=== PATIENT | male | born 1945 | race Caucasian/White ===

== ENCOUNTER 2019-12-14 04:08 | Inpatient (IN) ==
--- NOTE | 2019-12-14 04:28 | Emergency Department Note ---
History of Present Illness General Chief complaint: Abdominal Pain Stated complaint: ABDOMINAL PAIN Time Seen by Provider: 12/14/19 04:11 Source: patient Mode of arrival: EMS Limitations: no limitations History of Present Illness Provider complaint: abdominal pain Onset (ago): hour(s) 8 Location: abdomen Radiation: non-radiation Severity: moderate Pain Consistency: + constant Current Pain Intensity: 5 Quality: + constant Exacerbated By: + none Associated symptoms: + nausea/vomiting Treatments prior to arrival: other This is a 74-year-old male who presents this evening with abdominal pain. Patient states between 9 and 10 when he was getting ready for bed he began noticing intermittent central abdominal pain. Patient thought it perhaps was related to something he had eaten this evening. Patient states his diet has been different recently as he and his are in the process of moving and so they have not had their normal space and time to cook. Patient states he has a history of Crohn's disease, but has not had any flareups or problems since he underwent a bowel resection 10 years ago. Patient states he tried to lay down to go to sleep, however was still getting intermittent episodes of pain. And he states that approximately 1 AM, the pain began to be more constant and was slowly becoming more severe. Patient began to get more nauseated however no vomiting. Patient denies fevers or chills. Patient did try a dose of Pepto- Bismol without any significant improvement. Patient states only other recent medication change was the addition of amlodipine for blood pressure control. Patient states he chronically has loose stools, however he had noticed in the last several days his stools seemed even looser than usual. No black or bloody stools. No change in urine. No recent travel or other sick contacts. Patient states he does not follow with GI since he has not had any issues with his Crohn's disease and did not feel he needed to be on any additional preventative medication. Home Medications Home Medications Medication Instructions Recorded Confirmed Type budesonide-formoterol [Symbicort] 1 inh INHALATION BID 05/11/19 12/14/19 History cholecalciferol (vitamin D3) 1,000 unit PO DAILY 05/11/19 12/14/19 History [Vitamin D3] finasteride [Proscar] 5 mg PO DAILY 05/11/19 12/14/19 History levothyroxine 100 mcg PO DAILY 05/11/19 12/14/19 History losartan [Cozaar] 50 mg PO DAILY 05/11/19 12/14/19 History aspirin [Ecotrin Low Strength] 81 mg PO QAM #34 tab 05/12/19 12/14/19 Rx clopidogrel 75 mg PO QAM #34 tab 05/12/19 12/14/19 Rx amlodipine 2.5 mg PO DAILY 12/14/19 12/14/19 History atorvastatin 80 mg PO HS 12/14/19 12/14/19 History cyanocobalamin (vitamin B-12) 1,000 mcg PO DAILY 12/14/19 12/14/19 History [Vitamin B-12] nitroglycerin [Nitrostat] 0.4 mg SUBLINGUAL UD PRN 12/14/19 12/14/19 History Allergies Allergy/AdvReac Type Severity Reaction Status Date / Time No Known Allergies Allergy Unknown Verified 12/14/19 05:30 Past Med/Surg History Medical History Asthma CAD (coronary atherosclerotic disease) Crohn's disease Dyslipidemia Hypertension Hypothyroidism Prostate cancer Surgical History History of bowel resection History of cardiac cath 2019 - LEE to LAD & PDA History of cholecystectomy Family History Other Asthma Cancer Heart disease Social History Preferred Language: Vietnamese Communication Ability: Effective Beliefs That Will Affect Care: None Current Living Situation: Spouse Other Information That Helps Us Care for You: No Feels Safe at Home: Yes Smoking Status: Former smoker Hx Alcohol Use: Yes Alcohol type: hard liquor Alcohol Intake Frequency: Rarely Hx Substance Use: No Review of Systems See HPI for pertinent positives & negatives. and A total of 10 systems reviewed and were otherwise negative Physical Exam Vital Signs Vital Signs - 24 hr 12/14/19 04:03 12/14/19 04:13 12/14/19 04:15 Temperature 37.2 C Temperature Source Oral Pulse Rate 63 62 60 Pulse Rate [Left Finger] Pulse Rate from SpO2 Sensor 62 64 Respiratory Rate 18 14 17 Respiratory Effort / Characteristics Normal for Patient Blood Pressure 180/98 H 180/98 H Blood Pressure [Right Arm] Blood Pressure Mean 125 127 Blood Pressure Mean [Right Arm] Blood Pressure Position Sitting Pulse Oximetry 95 95 97 Oxygen Delivery Method Room Air Oxygen Flow Rate Sepsis Recent Fever Within 48 Hours No Sepsis Action Taken by Nursing No Action Required 12/14/19 04:30 12/14/19 04:31 12/14/19 05:00 Temperature Temperature Source Pulse Rate 59 L 62 55 L Pulse Rate [Left Finger] Pulse Rate from SpO2 Sensor 60 59 L 62 Respiratory Rate 20 16 23 Respiratory Effort / Characteristics Blood Pressure 159/90 H Blood Pressure [Right Arm] Blood Pressure Mean 117 Blood Pressure Mean [Right Arm] Blood Pressure Position Pulse Oximetry 96 97 95 Oxygen Delivery Method Oxygen Flow Rate Sepsis Recent Fever Within 48 Hours Sepsis Action Taken by Nursing 12/14/19 05:01 12/14/19 05:30 12/14/19 05:31 Temperature Temperature Source Pulse Rate 55 L 62 58 L Pulse Rate [Left Finger] Pulse Rate from SpO2 Sensor 57 L 63 59 L Respiratory Rate 26 H 27 H 19 Respiratory Effort / Characteristics Blood Pressure 159/89 H 147/99 H Blood Pressure [Right Arm] Blood Pressure Mean 128 113 Blood Pressure Mean [Right Arm] Blood Pressure Position Pulse Oximetry 97 97 96 Oxygen Delivery Method Oxygen Flow Rate Sepsis Recent Fever Within 48 Hours Sepsis Action Taken by Nursing 12/14/19 06:00 12/14/19 06:01 12/14/19 07:21 Temperature Temperature Source Pulse Rate 60 69 Pulse Rate [Left Finger] 72 Pulse Rate from SpO2 Sensor 60 68 Respiratory Rate 23 27 H 24 Respiratory Effort / Characteristics Blood Pressure 139/83 Blood Pressure [Right Arm] 166/92 H Blood Pressure Mean 104 Blood Pressure Mean [Right Arm] 116 Blood Pressure Position Pulse Oximetry 96 97 98 Oxygen Delivery Method Nasal Cannula Oxygen Flow Rate 2 Sepsis Recent Fever Within 48 Hours Sepsis Action Taken by Nursing 12/14/19 08:49 Temperature Temperature Source Pulse Rate Pulse Rate [Left Finger] 63 Pulse Rate from SpO2 Sensor Respiratory Rate 22 Respiratory Effort / Characteristics Blood Pressure Blood Pressure [Right Arm] 124/77 Blood Pressure Mean Blood Pressure Mean [Right Arm] 92 Blood Pressure Position Pulse Oximetry 98 Oxygen Delivery Method Nasal Cannula Oxygen Flow Rate 2 Sepsis Recent Fever Within 48 Hours Sepsis Action Taken by Nursing GENERAL: alert, uncomfortable appearing, well nourished, no distress, non-toxic EYE EXAM: normal conjunctiva, PERRL and EOM's grossly intact OROPHARYNX: no exudate, no erythema, lips, buccal mucosa, and tongue normal and mucous membranes are moist NECK: supple, no nuchal rigidity, no adenopathy, non-tender LUNGS: Clear to auscultation. Normal chest wall mechanics, no w/r/r HEART: no murmurs, S1 normal and S2 normal ABDOMEN: abdomen soft, central abdominal tenderness, mild distention noted, normo-active bowel sounds, no masses, no rebound or guarding. Dull to p ercussion. BACK: Back is symmetrical on inspection and there is no deformity, no midline tenderness, no CVA tenderness. SKIN: no rashes and no bruising UPPER EXTREMITIES: upper extremities are grossly normal. FROM, nml pulses b/l. LOWER EXTREMITIES: No pitting edema. FROM, nml pulses b/l. NEURO EXAM: Normal sensorium, cranial nerves II-XII grossly intact, normal speech, no gross weakness of arms, no gross weakness of legs. Gross sensation intact. Course Course 0607: Pt with nausea. Pain improved. 0630: Pt signed out to Dr Broderick awaiting CT results and repeat evaluation. Administered Medications Aspirin (Ecotrin Ectab) 81 mg PO QAM [facility] Stop: 01/13/20 11:45 Last Admin: 12/14/19 13:23 Dose: 81 mg Documented by: [id number] Potassium Chloride/Dextrose/Sod Cl (D5w And 1/2nss + 20meq Kcl) 20 meq in 1,000 mls @ 80 mls/hr IV .[id number] AN[facility]IONETTE Stop: 12/15/19 13:29 Last Admin: 12/14/19 13:23 Dose: 80 mls/hr Documented by: [id number] Ciprofloxacin (Cipro) 400 mg in 200 mls @ 100 mls/hr IV Q12 ANTIONETTE; Protocol Stop: 12/24/19 12:59 Last Infusion: 12/15/19 00:36 Dose: 0 mls/hr Documented by: [id number] Admin: 12/14/19 22:36 Dose: 100 mls/hr Documented by: [id number] Infusion: 12/14/19 16:35 Dose: 0 mls/hr Documented by: [id number] Admin: 12/14/19 14:32 Dose: 100 mls/hr Documented by: [id number] Metronidazole (Flagyl) 500 mg in 100 mls @ 100 mls/hr IV Q8 AN[facility]IONETTE Stop: 12/24/19 12:59 Last Infusion: 12/14/19 22:24 Dose: 0 mls/hr Documented by: [id number] Admin: 12/14/19 21:24 Dose: 100 mls/hr Documented by: [id number] Infusion: 12/14/19 15:43 Dose: 0 mls/hr Documented by: [id number] Admin: 12/14/19 14:32 Dose: 100 mls/hr Documented by: [id number] Losartan Potassium (Cozaar) 50 mg PO DAILY [facility] Stop: 01/13/20 11:45 Last Admin: 12/14/19 13:23 Dose: 50 mg Documented by: [id number] Ondansetron HCl (Zofran) 4 mg IV Q6H PRN PRN Reason: Nausea Stop: 01/13/20 11:45 Last Admin: 12/14/19 13:30 Dose: 4 mg Documented by: [id number] Discontinued Medications Fentanyl Citrate (Fentanyl Citrate) 50 mcg IV Q15M PRN PRN Reason: Pain Stop: 12/28/19 04:41 Last Admin: 12/14/19 05:22 Dose: 50 mcg Documented by: [id number] Admin: 12/14/19 05:01 Dose: 50 mcg Documented by: [id number] Sodium Chloride (Nss 1000ml) 1,000 mls @ 250 mls/hr IV .Q4H AN[facility]IONETTE Stop: 01/13/20 04:44 Last Admin: 12/14/19 11:48 Dose: Not Given Documented by: [id number] Infusion: 12/14/19 09:11 Dose: 0 mls/hr Documented by: [id number] Admin: 12/14/19 05:05 Dose: 250 mls/hr Documented by: [id number] Acetaminophen (Ofirmev) 1,000 mg in 100 mls @ 400 mls/hr IV NOW STA Stop: 12/14/19 05:58 Last Infusion: 12/14/19 07:40 Dose: 0 mls/hr Documented by: [id number] Admin: 12/14/19 07:20 Dose: 400 mls/hr Documented by: [id number] Methylprednisolone 40 mg/ (Syringe) 0.64 mls @ 1.5 mls/min IV ONE ONE Stop: 12/14/19 13:01 Last Admin: 12/14/19 13:23 Dose: 1.5 mls/min Documented by: [id number] Ioversol (Optiray 320 100ml) 94 ml IV ONCE PRN PRN Reason: Interaction Checking Stop: 12/18/19 07:05 Last Admin: 12/14/19 07:06 Dose: 94 ml Documented by: [id number] Ondansetron HCl (Zofran) 4 mg IV NOW STA Stop: 12/14/19 04:42 Last Admin: 12/14/19 04:55 Dose: 4 mg Documented by: [id number] Ondansetron HCl (Zofran) 4 mg IV NOW STA Stop: 12/14/19 05:44 Last Admin: 12/14/19 05:47 Dose: 4 mg Documented by: [id number] Medical Decision Making Medical Records Attestation: I reviewed the patient's medical records. Home Medications Current Medication List: was personally reviewed by me Laboratory Data Attestation: I reviewed the patient's lab results. Result diagrams: 12/14/19 04:23 12/14/19 04:23 Lab Results 12/14/19 12/14/19 12/14/19 Range/Units 04:23 04:23 04:23 WBC 8.00 (4.8-10.8) K/uL RBC 4.16 L (4.7-6.1) M/uL Hgb 13.3 L (14.0-18.0) g/dL Hct 39.1 L (42-52) % MCV 94.0 (80-100) fL MCH 32.0 (25-34) pg MCHC 34.0 (32-36) g/dL RDW Std Deviation 46.5 H (36.4-46.3) fL RDW Coeff of Yong 13.5 (11.5-14.5) % Plt Count 221 (130-400) K/uL MPV 9.5 (7.4-10.4) fL Immature Gran % (Auto) 0.3 % Neut % (Auto) 79.5 % Lymph % (Auto) 10.5 % [place] % (Auto) 7.0 % Eos % (Auto) 2.6 % Baso % (Auto) 0.1 % Immature Gran # (Auto) 0.02 (0.00-0.02) K/uL Neut # (Auto) 6.36 (1.4-6.5) K/uL Lymph # (Auto) 0.84 L (1.2-3.4) K/uL [place] # (Auto) 0.56 (0.11-0.59) K/uL Eos # (Auto) 0.21 (0-0.5) K/uL Baso # (Auto) 0.01 (0-0.2) K/uL PT 10.9 (9.0-12.0) Seconds INR 1.0 (0.9-1.1) Sodium 138 (136-145) mmol/L Potassium 3.6 (3.5-5.1) mmol/L Chloride 112 H (98-107) mmol/L Carbon Dioxide 22 (21-32) mmol/L Anion Gap 4.0 (3-11) BUN 16 (7-18) mg/dl Creatinine 1.11 (0.6-1.4) mg/dl Est Cr Clr Drug Dosing 54.6 ml/min Est GFR ( Amer) 75.4 Est GFR (Non-Af Amer) 65.1 BUN/Creatinine Ratio 14.0 (10-20) Glucose 97 (70-99) mg/dl Calcium 8.9 (8.5-10.1) mg/dl Magnesium 1.8 (1.8-2.4) mg/dl Total Bilirubin 0.7 (0.2-1) mg/dl AST 71 H (15-37) U/L ALT 74 (12-78) U/L Alkaline Phosphatase 101 (45-117) U/L Troponin I < 0.015 (0-0.045) ng/ml Total Protein 7.0 (6.4-8.2) gm/dl Albumin 3.2 L (3.4-5.0) gm/dl Globulin 3.8 (2.5-4.0) gm/dl Albumin/Globulin Ratio 0.8 L (0.9-2) Lipase 75 (73-393) U/L Urine Color Urine Appearance (Clear) Urine pH (4.5-7.5) Ur Specific [place] (1.000-1.030) Urine Protein (Negative) Urine Glucose (UA) (Negative) Urine Ketones (Negative) Urine Blood (Negative) Urine Nitrite (Negative) Urine Bilirubin (Negative) Urine Urobilinogen (Negative) Ur Leukocyte Esterase (Negative) 12/14/19 Range/Units 08:00 WBC (4.8-10.8) K/uL RBC (4.7-6.1) M/uL Hgb (14.0-18.0) g/dL Hct (42-52) % MCV (80-100) fL MCH (25-34) pg MCHC (32-36) g/dL RDW Std Deviation (36.4-46.3) fL RDW Coeff of Yong (11.5-14.5) % Plt Count (130-400) K/uL MPV (7.4-10.4) fL Immature Gran % (Auto) % Neut % (Auto) % Lymph % (Auto) % [place] % (Auto) % Eos % (Auto) % Baso % (Auto) % Immature Gran # (Auto) (0.00-0.02) K/uL Neut # (Auto) (1.4-6.5) K/uL Lymph # (Auto) (1.2-3.4) K/uL [place] # (Auto) (0.11-0.59) K/uL Eos # (Auto) (0-0.5) K/uL Baso # (Auto) (0-0.2) K/uL PT (9.0-12.0) Seconds INR (0.9-1.1) Sodium (136-145) mmol/L Potassium (3.5-5.1) mmol/L Chloride (98-107) mmol/L Carbon Dioxide (21-32) mmol/L Anion Gap (3-11) BUN (7-18) mg/dl Creatinine (0.6-1.4) mg/dl Est Cr Clr Drug Dosing ml/min Est GFR ( Amer) Est GFR (Non-Af Amer) BUN/Creatinine Ratio (10-20) Glucose (70-99) mg/dl Calcium (8.5-10.1) mg/dl Magnesium (1.8-2.4) mg/dl Total Bilirubin (0.2-1) mg/dl AST (15-37) U/L ALT (12-78) U/L Alkaline Phosphatase (45-117) U/L Troponin I (0-0.045) ng/ml Total Protein (6.4-8.2) gm/dl Albumin (3.4-5.0) gm/dl Globulin (2.5-4.0) gm/dl Albumin/Globulin Ratio (0.9-2) Lipase (73-393) U/L Urine Color Yellow Urine Appearance Clear (Clear) Urine pH 5.0 (4.5-7.5) Ur Specific [place] 1.025 (1.000-1.030) Urine Protein Negative (Negative) Urine Glucose (UA) Negative (Negative) Urine Ketones Trace H (Negative) Urine Blood Negative (Negative) Urine Nitrite Negative (Negative) Urine Bilirubin Negative (Negative) Urine Urobilinogen Negative (Negative) Ur Leukocyte Esterase Negative (Negative) Blood Pressure Blood Pressure Findings: Elevated blood pressure Blood Pressure Disposition: further management by hospitalist RACHEL Samuel Patient presenting with increased abdominal pain in the setting of a history of Crohn's disease. Patient ill-appearing however labs reassuring. Vital signs stable and patient afebrile. Patient signed out to Dr. Broderick awaiting CT scan results to make disposition and reevaluate the patient. Patient aware of lab results during my recheck and at time of signout. Patient did not have a surgical abdomen or peritoneal signs, however is at risk for other GI pathology. No evidence of bacteremia/sepsis. I do not suspect perforation, GI bleed, or mesenteric ischemia at this time. Impression & Plan Abdominal pain, Nausea, SBO (small bowel obstruction), Crohn's disease Discharge Plan Visit Data *Final* Discharge Date/Time: 12/14/19 10:30 Chief Complaint: Abdominal Pain Stated Complaint: ABDOMINAL PAIN ED Provider: Hanna Broderick Discharge Problem: Abdominal pain, Nausea, SBO (small bowel obstruction), Crohn's disease Patient Disposition: Admitted As Inpatient Discharge Instructions Interventions: ED Discharge Assessment Last Done: 12/14/19 10:30 Discharge Problem: Abdominal pain Qualifiers: Abdominal location: generalized Qualified Code(s): R10.84 - Generalized abdominal pain Crohn's disease Qualifiers: Gastrointestinal tract location: small and large intestine Digestive disease complication type: with intestinal obstruction Qualified Code(s): K50.812 - Crohn's disease of both small and large intestine with intestinal obstruction
[2019-12-14] MEDS ORDERED: ONDANSETRON INJ 2 MG/ML 2 ML VIAL IV STA ×2 (04:41→05:43)
[2019-12-14 04:57] LABS: Basophils # (auto) 0.01 K/uL (0-0.2); Basophils % (auto) 0.1 %; Eosinophils # (auto) 0.21 K/uL (0-0.5); Eosinophils % (auto) 2.6 %; Hematocrit (blood only) 39.1 % (42-52); Hemoglobin 13.3 g/dL (14.0-18.0); Immature Granulocytes # (auto) 0.02 K/uL (0.00-0.02); Immature Granulocytes % (auto) 0.3 %; Lymphocytes # (auto) 0.84 K/uL (1.2-3.4); Lymphocytes % (auto) 10.5 %; Mean Platelet Volume 9.5 fL (7.4-10.4); Monocytes # (auto) 0.56 K/uL (0.11-0.59); Neutrophils # (auto) 6.36 K/uL (1.4-6.5); Neutrophils % (auto) 79.5 %; Platelet Count 221 K/uL (130-400); RDW Coefficient of Variation 13.5 % (11.5-14.5); RDW Standard Deviation 46.5 fL (36.4-46.3); Red Blood Count 4.16 M/uL (4.7-6.1)
[2019-12-14] MEDS: fentaNYL citrate 100 MCG/2 ML VIAL IV PRN ×2 (05:01→05:22)
[2019-12-14 05:02] LABS: Prothrombin Time 10.9 Seconds (9.0-12.0)
[2019-12-14] MEDS: SODIUM CHLORIDE 0.9% 1000ML 1,000 ML IV SCH ×2 (05:05→11:48)
[2019-12-14 05:17] LABS: Alanine Aminotransferase 74 U/L (12-78); Albumin Level 3.2 gm/dl (3.4-5.0); Aspartate Aminotransferase 71 U/L (15-37); Blood Urea Nitrogen 16 mg/dl (7-18); Calcium 8.9 mg/dl (8.5-10.1); Carbon Dioxide 22 mmol/L (21-32); Chloride 112 mmol/L (98-107); Creatinine Clr Calc Pharmacy 54.6 ml/min; Est GFR (African American) 75.4; Est GFR (Non-African American) 65.1; Glucose 97 mg/dl (70-99); Lipase 75 U/L (73-393); Magnesium 1.8 mg/dl (1.8-2.4); Potassium 3.6 mmol/L (3.5-5.1); Sodium 138 mmol/L (136-145)
[2019-12-14 05:22] LABS: Albumin Globulin Ratio 0.8 (0.9-2); Alkaline Phosphatase 101 U/L (45-117); Bilirubin,Total 0.7 mg/dl (0.2-1); Globulin 3.8 gm/dl (2.5-4.0); Troponin I < 0.015 ng/ml (0-0.045)
[2019-12-14] MEDS ORDERED: ACETAMINOPHEN 1,000 MG/100 ML VIAL IV STA (05:44)
[2019-12-14] MEDS ORDERED: IOVERSOL 100ml IV PRN (07:06)
--- NOTE | 2019-12-14 07:32 | CT Scan Report ---
CT abd pelvis oral and IV con CLINICAL HISTORY: abd pain, hx Crohn's and resection COMPARISON STUDY: 01/23/2009 TECHNIQUE: The patient was scanned in a dynamic helical fashion during intravenous administration of 94 cc of Optiray 320. The patient drank a small volume of oral contrast. A dose lowering technique w as utilized adhering to the principles of ALARA. CT DOSE: 416.94 mGy.cm FINDINGS: Lower chest: There are dependent atelectatic changes. There is a small hiatal hernia Liver: The contrast-enhanced liver is normal in size, contour, and attenuation. There is no intrahepa tic biliary ductal dilatation. The hepatic veins and portal veins are patent. Gallbladder: Surgically absent Spleen: Normal in size and attenuation. Pancreas: Unremarkable. Adrenal glands: Unremarkable. Kidneys: No solid renal masses are visualized. There are bilateral renal cysts measuring up to 2 cm i n diameter. Bowel: The patient is status post a cecal and terminal ileal resection with a ileal colonic anastomos is. There are dilated small bowel loops with a small bowel feces sign. There is a distal ileal transi tion zone. The distal ileum is thick-walled consistent with Crohn's disease. There is minimal ascites . There is no portal venous gas. There is no pneumatosis. There is borderline bowel wall thickening o f a second small bowel loop possibly representing a skip lesion. There is colonic diverticulosis. The re is no evidence of acute diverticulitis. At the transition zone, the bowel loops are matted togethe r including a loop of sigmoid colon. A fistula cannot be excluded. Peritoneum: No free air is visualized. There is minimal ascites. There are small fat-containing left inguinal hernia. Vasculature: The abdominal aorta is normal in course and caliber. Adenopathy: None. Pelvic viscera: There is mild prostatomegaly Skeletal structures: There is a stable sacral bone island, and stable rim sclerotic lesion within the right iliac bone. IMPRESSION: 1. Postsurgical changes of a cecal and terminal ileal resection with a ileal colonic anastomosis 2. Small bowel obstruction with a right lower quadrant transition zone and a thick-walled distal ilea l bowel loop consistent with the clinical history of Crohn's disease. There is no pneumatosis. There is no portal venous gas. There is associated low volume ascites. 3. At the transition zone, there are matted bowel loops which include the sigmoid colon. A fistula at this level must be considered. ACT 112: Negative or not required by law. Electronically signed by: Frankie Malone M.D. 12/14/2019 7:31 AM
[2019-12-14 08:19] LABS: Appearance Urine Clear (Clear); Bilirubin Urine Negative (Negative); Blood Urine Negative (Negative); Color Urine Yellow; Glucose Urine UA Negative (Negative); Ketones Urine Trace (Negative); Leukocyte Esterase Urine Negative (Negative); Nitrite Urine Negative (Negative); Protein Urine Negative (Negative); Specific Gravity Urine 1.025 (1.000-1.030); Urobilinogen Urine Negative (Negative)
--- NOTE | 2019-12-14 09:41 | Electrocardiogram Report ---
Test Reason : Blood Pressure : / mmHG Vent. Rate : 067 BPM Atrial Rate : 067 BPM P-R Int : 218 ms QRS Dur : 146 ms QT Int : 460 ms P-R-T Axes : 059 -34 022 degrees QTc Int : 486 ms Sinus rhythm with 1st degree A-V block with Premature atrial complexes Left axis deviation Right bundle branch block Abnormal ECG When compared with ECG of 12-MAY-2019 06:49, Premature atrial complexes are now Present Confirmed by Eduard Rubio ([id number]) on 12/14/2019 9:41:46 AM Referred By: REFERRED SELF Confirmed By:Eduard Rubio
--- NOTE | 2019-12-14 10:26 | Surgery Consultation ---
Date of Consultation December 14, 2019 Assessment & Plan (1) SBO (small bowel obstruction): pt is a 74 year-old male who presents to Er with acute abdominal pain, IMP: SBO, colon fistula? Plan, I agree with that hospitalist will admit pt to hospital, no emergent surgery indication now, conservative treatment, NPO, except po eds, hold plavix, continue po ASA, IV fluid, labs, KUB in am, D/W pt may need surgery in pt's symptoms are getting worse, pt understood, I answered all questions, (2) Colonic fistula: History of Present Illness History of Present Illness CC: abdominal pain, HPI: pt is a 74 year-old male who presents to Er with 8 hours history acute abdominal pain with nausea, no vomiting, the pain is located at lower abdomen, the pain is 8/10. pt had BM before came to ER, now, pt feels better, no abdomi nal pain, no fever, pt denies chest pain, no diarrhea, pt had bowel resection for crohn's disease 10 years ago, pt has no abdominal pain since then. pt had CT scan at Er -IMPRESSION: 1. Postsurgical changes of a cecal and terminal ileal resection with a ileal colonic anastomosis 2. Small bowel obstruction with a right lower quadrant transition zone and a thick-walled distal ileal bowel loop consistent with the clinical history of Crohn's disease. There is no pneumatosis. There is no portal venous gas. There is associated low volume ascites. 3. At the transition zone, there are matted bowel loops which include the sigmoid colon. A fistula at this level must be considered. Allergies Allergy/AdvReac Type Severity Reaction Status Date / Time No Known Allergies Allergy Unknown Verified 12/14/19 05:30 Home Medications Home Medications Medication Instructions Recorded Confirmed Type budesonide-formoterol [Symbicort] 1 inh INHALATION BID 05/11/19 12/14/19 History cholecalciferol (vitamin D3) 1,000 unit PO DAILY 05/11/19 12/14/19 History [Vitamin D3] finasteride [Proscar] 5 mg PO DAILY 05/11/19 12/14/19 History levothyroxine 100 mcg PO DAILY 05/11/19 12/14/19 History losartan [Cozaar] 50 mg PO DAILY 05/11/19 12/14/19 History aspirin [Ecotrin Low Strength] 81 mg PO QAM #34 tab 08/28/19 03/31/20 Rx clopidogrel 75 mg PO QAM #34 tab 05/12/19 12/14/19 Rx amlodipine 2.5 mg PO DAILY 12/14/19 12/14/19 History atorvastatin 80 mg PO HS 12/14/19 12/14/19 History cyanocobalamin (vitamin B-12) 1,000 mcg PO DAILY 12/14/19 12/14/19 History [Vitamin B-12] nitroglycerin [Nitrostat] 0.4 mg SUBLINGUAL UD PRN 12/14/19 12/14/19 History Patient History Medical History (Updated 12/14/19 @ 10:34 by Jacoby Lizarraga MD) CAD (coronary atherosclerotic disease) Crohn's disease Dyslipidemia Hypertension Hypothyroidism Prostate cancer Surgical History (Updated 12/14/19 @ 08:34 by Lida Badillo PA-C) History of bowel resection History of cardiac cath 2019 - LEE to LAD & PDA Social History Preferred Language: Faroese Beliefs That Will Affect Care: None Current Living Situation: Spouse Feels Safe at Home: Yes Smoking Status: Former smoker Hx Alcohol Use: Yes Alcohol type: hard liquor Hx Substance Use: No Review of Systems Review of Systems: All systems reviewed & are unremarkable except as noted in HPI & below Constitutional: as per Subjective / HPI Eyes: as per Subjective / HPI Ear, Nose, Mouth, Throat: as per Subjective / HPI Respiratory: as per Subjective / HPI Cardiovascular: Additional Comments: CAD, 2 cardiac stents, HTN Gastrointestinal: as per Subjective / HPI crohn's disease, bowel resection Genitourinary: + as per Subjective / HPI and + problem reported (prostate cancer) Musculoskeletal: as per Subjective / HPI Integumentary: as per Subjective / HPI Neurologic: as per Subjective / HPI TIA Psychiatric: as per Subjective / HPI Endocrine: hypothyroidism Hematologic / Lymphatic: as per Subjective / HPI Allergy / Immunological: as per Subjective / HPI Physical Exam Constitutional: WD/WN, vitals as above well developed and well nourished Eyes: PERRL, conjunctivae normal, anicteric sclerae ENMT: external ear and nose normal, oropharynx normal Neck: trachea midline, no thyromegaly Respiratory: normal respiratory effort, lungs clear to auscultation normal respiratory effort Cardiovascular: RRR, no murmur, no edema Rate/Rhythm: regular rate and regular rhythm Heart Sounds: normal S1 and normal S2 Gastrointestinal (Abdomen): normal bowel sounds, soft, nontender, no hepatosplenomegaly Percussion/Palpation: abdomen soft middle line scar, no distend, no tenderness, BS + Musculoskeletal: no cyanosis or clubbing, extremities motor strength 5/5 Skin: no rashes, warm and dry Neurologic: patellar DTR's 2+ bilat, sensation intact Psychiatric: Orientation: alert and oriented x 3 Results & Data Vital Signs (Past 12 Hours) Vital Signs Temp Pulse Pulse Resp BP BP Pulse Ox 12/14/19 10:12 60 18 138/79 97 12/14/19 08:49 63 22 124/77 98 12/14/19 07:21 72 24 166/92 H 98 12/14/19 06:01 69 27 H 97 12/14/19 06:00 60 23 139/83 96 12/14/19 05:31 58 L 19 96 12/14/19 05:30 62 27 H 147/99 H 97 12/14/19 05:01 55 L 26 H 159/89 H 97 12/14/19 05:00 55 L 23 95 12/14/19 04:31 62 16 97 12/14/19 04:30 59 L 20 159/90 H 96 12/14/19 04:15 60 17 97 12/14/19 04:13 62 14 180/98 H 95 12/14/19 04:03 37.2 C 63 18 180/98 H 95 Laboratory Results Abnormal lab results 12/14/19 12/14/19 12/14/19 Range/Units 04:23 04:23 08:00 RBC 4.16 L (4.7-6.1) M/uL Hgb 13.3 L (14.0-18.0) g/dL Hct 39.1 L (42-52) % RDW Std Deviation 46.5 H (36.4-46.3) fL Lymph # (Auto) 0.84 L (1.2-3.4) K/uL Chloride 112 H (98-107) mmol/L AST 71 H (15-37) U/L Albumin 3.2 L (3.4-5.0) gm/dl Albumin/Globulin Ratio 0.8 L (0.9-2) Urine Ketones Trace H (Negative) Diagnostic Findings CT abd pelvis oral and IV con CLINICAL HISTORY: abd pain, hx Crohn's and resection COMPARISON STUDY: 01/23/2009 TECHNIQUE: The patient was scanned in a dynamic helical fashion during intravenous administration of 94 cc of Optiray 320. The patient drank a small volume of oral contrast. A dose lowering technique was utilized adhering to the principles of ALARA. CT DOSE: 416.94 mGy.cm FINDINGS: Lower chest: There are dependent atelectatic changes. There is a small hiatal hernia Liver: The contrast-enhanced liver is normal in size, contour, and attenuation. There is no intrahepatic biliary ductal dilatation. The hepatic veins and portal veins are patent. Gallbladder: Surgically absent Spleen: Normal in size and attenuation. Pancreas: Unremarkable. Adrenal glands: Unremarkable. Kidneys: No solid renal masses are visualized. There are bilateral renal cysts measuring up to 2 cm in diameter. Bowel: The patient is status post a cecal and terminal ileal resection with a ileal colonic anastomosis. There are dilated small bowel loops with a small bowel feces sign. There is a distal ileal transition zone. The distal ileum is thick-walled consistent with Crohn's disease. There is minimal ascites. There is no portal venous gas. There is no pneumatosis. There is borderline bowel wall thickening of a second small bowel loop possibly representing a skip lesion. There is colonic diverticulosis. There is no evidence of acute diverticulitis. At the transition zone, the bowel loops are matted together including a loop of sigmoid colon. A fistula cannot be excluded. Peritoneum: No free air is visualized. There is minimal ascites. There are small fat-containing left inguinal hernia. Vasculature: The abdominal aorta is normal in course and caliber. Adenopathy: None. Pelvic viscera: There is mild prostatomegaly Skeletal structures: There is a stable sacral bone island, and stable rim sclerotic lesion within the right iliac bone. IMPRESSION: 1. Postsurgical changes of a cecal and terminal ileal resection with a ileal colonic anastomosis 2. Small bowel obstruction with a right lower quadrant transition zone and a thick-walled distal ileal bowel loop consistent with the clinical history of Crohn's disease. There is no pneumatosis. There is no portal venous gas. There is associated low volume ascites. 3. At the transition zone, there are matted bowel loops which include the sigmo id colon. A fistula at this level must be considered.
--- NOTE | 2019-12-14 10:52 | History & Physical Report ---
Date of Service December 14, 2019 Assessment & Plan (1) SBO (small bowel obstruction): (2) Colonic fistula: Pt is 74 y/o M with PMH CAD s/p LEE to LAD & PDA in 04/2019, HTN, dyslipidemia, hypothyroidism, Crohns disease s/p resection, prostate CA presented to ER with c/o abdominal pain starting last night. Reports started with cramping type pain across mid abdomen which progressed to constant pain across mid abdomen. In ER afebrile, P: 63, R: 18, BP: 180/98, 166/92, 95% on RA. No leukocytosis, H/H: 13/39 (baseline Hgb~13.8), BUN: 16, Cr: 1.1, GFR: 65, lipase: WNL CT ABD/PELVIS: 1. Postsurgical changes of a cecal and terminal ileal resection with a ileal colonic anastomosis 2. Small bowel obstruction with a right lower quadrant transition zone and a thick-walled distal ileal bowel loop consistent with the clinical history of Crohn's disease. There is no pneumatosis. There is no portal venous gas. There is associated low volume ascites. 3. At the transition zone, there are matted bowel loops which include the sigmoid colon. A fistula at this level must be considered. -In ER given Tylenol IV, fentanyl 50mcg x 2 doses, Zofran x 2 doses, NSS @250ml/hr -During ER course no further vomiting, and abdominal pain decreased to 1/10 on pain scale -Monitor I's & O's -NPO except for meds -D5w 1/2 NSS +20meq Kcl -Tylenol IV prn pain, morphine prn pain -General surgery consult, Dr Lizarraga evaluated pt in ER and recommends no NG tube at this time and conservative measures -KUB in am -CBC, BMP in am (3) CAD (coronary atherosclerotic disease): S/P LEE to LAD & PDA in 04/2019. Follows with Dr Jerez No CP or SOB. No EKG changes -Hold atorvastatin -Will hold Plavix at this time per general surgery recommendations; also confirmed with cardiology and ok to Plavix for now since stent was for angina and not STEMI and has been more than 6 months -Continue aspirin (4) Hypertension: Stable -Continue losartan, amlodipine (5) Dyslipidemia: -Hold atorvastatin for now (6) Crohn's disease: S/P Resection Pt has not followed with GI or had treatment for years as felt was controlled -General surgery recommends GI consult (7) Hypothyroidism: -TSH pending -Continue levothyroxine (8) Asthma: No exacerbation -Continue home inhaler DVT Prophylaxis -SCDs for now in case requires surgical procedure admit med/tele Full Code as per discussion with pt, however reports would not want prolonged on life support if poor prognosis Follows with Dr Cuba and [facility] for routine care Pt was seen and care coordinated with Dr Chiu. See addendum History of Present Illness Chief Complaint: Abdominal pain Primary Care Provider: Tulio Cuba MD Pt is 74 y/o M with PMH CAD s/p LEE to LAD & PDA in 04/2019, HTN, dyslipidemia, hypothyroidism, Crohns disease s/p resection, prostate CA presented to ER with c/o abdominal pain starting last night. Reports started with cramping type pain across mid abdomen which progressed to constant pain across mid abdomen. Pt thought this pain felt similar to prior Crohn's flare. C/O nausea and vomited once early this morning. Reports chronic loose stools and has 5-10 episodes a day. Denies hematochezia, melena or mucous in stools. Last night tried Pepto- bismol without relief. He reports diet has been different as he has been eating left over pizza and sandwiches the past week. No other ill contacts. H/O cholecystectomy, bowel resection in past. Reports chronic feels cold, denies fever. States last week has been moving and has been carrying heavy boxes and notes some bruising to abdomen. He states a couple of days ago felt tired and lightheaded in the morning and improved in the afternoon after he ate and drank some fluids. Denies syncope. Denies diaphoresis, hematemesis, KITCHEN, vision changes, neck pain, CP, SOB, orthopnea, palpitations, cough, sore throat, choking, otalgia, rhinorrhea, paresthesias, extremity weakness, extremity edema, rashes, urinary symptoms. Denies recent travel. Allergies Allergy/AdvReac Type Severity Reaction Status Date / Time No Known Allergies Allergy Unknown Verified 12/14/19 05:30 Home Medications Home Medications Medication Instructions Recorded Confirmed Type budesonide-formoterol [Symbicort] 1 inh INHALATION BID 05/11/19 12/14/19 History cholecalciferol (vitamin D3) 1,000 unit PO DAILY 05/11/19 12/14/19 History [Vitamin D3] finasteride [Proscar] 5 mg PO DAILY 05/11/19 12/14/19 History levothyroxine 100 mcg PO DAILY 05/11/19 12/14/19 History losartan [Cozaar] 50 mg PO DAILY 05/11/19 12/14/19 History aspirin [Ecotrin Low Strength] 81 mg PO QAM #34 tab 05/12/19 12/14/19 Rx clopidogrel 75 mg PO QAM #34 tab 05/12/19 12/14/19 Rx amlodipine 2.5 mg PO DAILY 12/14/19 12/14/19 History atorvastatin 80 mg PO HS 12/14/19 12/14/19 History cyanocobalamin (vitamin B-12) 1,000 mcg PO DAILY 12/14/19 12/14/19 History [Vitamin B-12] nitroglycerin [Nitrostat] 0.4 mg SUBLINGUAL UD PRN 12/14/19 12/14/19 History Past Med/Surg History Medical History Asthma CAD (coronary atherosclerotic disease) Crohn's disease Dyslipidemia Hypertension Hypothyroidism Prostate cancer Surgical History History of bowel resection History of cardiac cath 2019 - LEE to LAD & PDA History of cholecystectomy Family History Other Asthma Cancer Heart disease Social History Preferred Language: Brazilian Communication Ability: Effective Beliefs That Will Affect Care: None Current Living Situation: Spouse Other Information That Helps Us Care for You: No Feels Safe at Home: Yes Smoking Status: Former smoker Hx Alcohol Use: Yes Alcohol type: hard liquor Alcohol Intake Frequency: Rarely Hx Substance Use: No Review of Systems Review of Systems: All systems reviewed & are unremarkable except as noted in HPI & below Physical Exam Physical Exam: General: no distress, WDWN Head: normocephalic, atraumatic Eyes: PERRL, EOM's intact, conjunctiva non-injected, anicteric ENT: normal inspection external ears, nose, mucous membranes mildly dry Neck: supple, trachea midline Lungs: no respiratory distress, faint rales at bases bilaterally, no wheezing/rhonchi CV: RRR, no murmur, no pretibial edema Abd: +healed surgical scar mid abdomen, +few ecchymosis abdomen, mildly distended, hypoactive BS, soft, non-tender to palpation at this time Ext: no cyanosis, no calf tenderness Neuro: A&O x 3, no focal deficits noted, normal affect Skin: warm, dry Results & Data Results & Data ([facility]) Vital Signs (Past 12 Hours) Vital Signs Temp Pulse Pulse Resp BP BP Pulse Ox 12/14/19 10:30 59 L 22 138/79 95 12/14/19 10:12 60 18 138/79 97 12/14/19 08:49 63 22 124/77 98 12/14/19 07:21 72 24 166/92 H 98 12/14/19 06:01 69 27 H 97 12/14/19 06:00 60 23 139/83 96 12/14/19 05:31 58 L 19 96 12/14/19 05:30 62 27 H 147/99 H 97 12/14/19 05:01 55 L 26 H 159/89 H 97 12/14/19 05:00 55 L 23 95 12/14/19 04:31 62 16 97 12/14/19 04:30 59 L 20 159/90 H 96 12/14/19 04:15 60 17 97 12/14/19 04:13 62 14 180/98 H 95 12/14/19 04:03 37.2 C 63 18 180/98 H 95 Laboratory Results Short CBC 12/14/19 Range/Units 04:23 WBC 8.00 (4.8-10.8) K/uL Hgb 13.3 L (14.0-18.0) g/dL Hct 39.1 L (42-52) % Plt Count 221 (130-400) K/uL BMP 12/14/19 04:23 Sodium 138 Potassium 3.6 Chloride 112 H Carbon Dioxide 22 BUN 16 Creatinine 1.11 Glucose 97 Calcium 8.9 Cardiac Enzymes 12/14/19 Range/Units 04:23 Troponin I < 0.015 (0-0.045) ng/ml Liver Function 12/14/19 Range/Units 04:23 Total Bilirubin 0.7 (0.2-1) mg/dl AST 71 H (15-37) U/L ALT 74 (12-78) U/L Alkaline Phosphatase 101 (45-117) U/L Albumin 3.2 L (3.4-5.0) gm/dl Urine 12/14/19 Range/Units 08:00 Urine Color Yellow Urine Appearance Clear (Clear) Urine pH 5.0 (4.5-7.5) Ur Specific [place] 1.025 (1.000-1.030) Urine Protein Negative (Negative) Urine Glucose (UA) Negative (Negative) Diagnostic Findings CT ABD/PELVIS: IMPRESSION: 1. Postsurgical changes of a cecal and terminal ileal resection with a ileal colonic anastomosis 2. Small bowel obstruction with a right lower quadrant transition zone and a thick-walled distal ileal bowel loop consistent with the clinical history of Crohn's disease. There is no pneumatosis. There is no portal venous gas. There is associated low volume ascites. 3. At the transition zone, there are matted bowel loops which include the sigmoid colon. A fistula at this level must be considered. ECG Rate (beats per minute): 67 Rhythm: sinus rhythm Findings: + 1st degree AV block, + PAC and + RBBB Code Status & VTE Plan VTE Prophylaxis Plan VTE Prophylaxis will be ordered: Yes Supervising Physician Co-Signing Physician Notes Patient is a 74-year-old male with H/O CAD, Crohn's disease s/p resection, prostate cancer, history of cholecystectomy and other comorbidities presents with history of cramping, nonradiating abdominal pain associated with nausea, vomiting and chronic diarrhea (unchanged) since [address] abdomen suggestive of small bowel obstruction with the right lower quadrant transition zone and a thick-walled distal ileal bowel loop consistent with Crohn's disease. At the transition zone, there are matted bowel loops which include the sigmoid colon. A fistula at this level must be considered. Patient is evaluated by General Surgery and GI. Physical Exam: Vitals signs as noted above General Appearance:Moderately built and nourished, no apparent distress Head: normocephalic, Atraumatic Eyes: normal inspection, EOMI Neck: supple, Trachea midline Respiratory/Chest: Normal breath sounds, CTA Cardiovascular: S1, S2, No murmur Abdomen/GI:Soft, mild distended, non tender, decreased Bowel sounds, +Well healed vertical surgical scar Extremities/Musculoskelatal:normal inspection, no edema Neurologic/Psych:AAOX3, grossly no focal neurological deficits Skin: normal color, warm Small Bowel Obstruction Cannot rule out Fistula Given 1 dose of Solumedrol and started on IV Abx as recommended by GI Keep NPO IV fluids, Pain Control Appreciate Surgery/GI Input No plan for Scope/Surgical intervention currently Consider NG tube placement if needed repeat KUB in AM Needs Outpatient MRE for evaluation of fistula CAD S/P stent Continue Aspirin Hold Plavix/Statin for now I personally reviewed the record. Patient is interviewed and examined at bedside. Patient's care is coordinated with Lida Badillo PA-C. Please refer to the documentation above for details of patient's presentation and for discussion of other issues.
--- NOTE | 2019-12-14 11:31 | Emergency Department Note ---
ED Visit Note I received this patient in signout at the change of shift from Dr. Martha matos, pending CT scan of the abdomen and pelvis. CT images were obtained and read as below. CT abd pelvis oral and IV con CLINICAL HISTORY: abd pain, hx Crohn's and resection COMPARISON STUDY: 01/23/2009 TECHNIQUE: The patient was scanned in a dynamic helical fashion during intravenous administration of 94 cc of Optiray 320. The patient drank a small volume of oral contrast. A dose lowering technique was utilized adhering to the principles of ALARA. CT DOSE: 416.94 mGy.cm FINDINGS: Lower chest: There are dependent atelectatic changes. There is a small hiatal hernia Liver: The contrast-enhanced liver is normal in size, contour, and attenuation. There is no intrahepatic biliary ductal dilatation. The hepatic veins and portal veins are patent. Gallbladder: Surgically absent Spleen: Normal in size and attenuation. Pancreas: Unremarkable. Adrenal glands: Unremarkable. Kidneys: No solid renal masses are visualized. There are bilateral renal cysts measuring up to 2 cm in diameter. Bowel: The patient is status post a cecal and terminal ileal resection with a ileal colonic anastomosis. There are dilated small bowel loops with a small bowel feces sign. There is a distal ileal transition zone. The distal ileum is thick-walled consistent with Crohn's disease. There is minimal ascites. There is no portal venous gas. There is no pneumatosis. There is borderline bowel wall thickening of a second small bowel loop possibly representing a skip lesion. There is colonic diverticulosis. There is no evidence of acute diverticulitis. At the transition zone, the bowel loops are matted together including a loop of sigmoid colon. A fistula cannot be excluded. Peritoneum: No free air is visualized. There is minimal ascites. There are small fat-containing left inguinal hernia. Vasculature: The abdominal aorta is normal in course and caliber. Adenopathy: None. Pelvic viscera: There is mild prostatomegaly Skeletal structures: There is a stable sacral bone island, and stable rim sclerotic lesion within the right iliac bone. IMPRESSION: 1. Postsurgical changes of a cecal and terminal ileal resection with a ileal colonic anastomosis 2. Small bowel obstruction with a right lower quadrant transition zone and a thick-walled distal ileal bowel loop consistent with the clinical history of Crohn's disease. There is no pneumatosis. There is no portal venous gas. There is associated low volume ascites. 3. At the transition zone, there are matted bowel loops which include the sigmoid colon. A fistula at this level must be considered. ACT 112: Negative or not required by law. Electronically signed by: Frankie Malone M.D. 12/14/2019 7:31 AM Dictated: 12/14/19715 Transcribed: 12/14/19715 Patient's case was discussed with Dr. Lizarraga of general surgery who consulted on the patient in the emergency department. He has agreed to be the applications consultant on the case if the hospitalist service is primarily responsible for the admission. Dr. Chiu of the hospitalist service has evaluated the patient and will further manage. Patient his , Kristan (contacted via phone) where made aware of the plan and agree. Please see Dr. matos's notes for further detail of the history, physical and visit. Diagnosis: Small bowel obstruction . : Abdominal pain Qualifiers: Abdominal location: generalized Qualified Code(s): R10.84 - Generalized abdominal pain
[2019-12-14] MEDS ORDERED: NITROGLYCERIN SL 0.4 MG/TAB TAB SL PRN (11:46)
[2019-12-14] MEDS ORDERED: MoRPHine SULFATE 2 MG/ML CARP IV PRN (11:46)
[2019-12-14] MEDS ORDERED: ACETAMINOPHEN 1,000 MG/100 ML VIAL IV PRN (11:46)
[2019-12-14] MEDS ORDERED: ONDANSETRON INJ 2 MG/ML 2 ML VIAL IV PRN (11:46)
--- NOTE | 2019-12-14 12:03 | Gastrointestinal Consultation ---
Date of Consultation December 14, 2019 Supervising Physician Co-Signing Physician Notes 74 yo male with known Crohn's disease (failed 5-asa's, imuran, on humira for 4 months in the past), primarily with distal small bowel disease s/p removal of 32 cm of terminal ileum and cecum presumably in 2007, last seen by [facility] (Dr. Meyers) in 2011 and appears he has not been on therapy for his Crohn's since that time. [facility]. Admitted with abdominal pain and imaging showing distal sbo obstruction with transition point- surgery recommending conservative mgmt, ? fistula. Would opt to check esr/crp. Consider NG tube. One dose of IV methylprednisolone 40 mg Cipro/Flagyl IV No plans to scope at this time given sbo. Could conisder MRE for further evaluation of fistula - this can be done as an outpatient. IV fluids- replete mg/k. NPO for now. History of Present Illness Reason for Consultation: Abdominal Pain Requesting Physician: Eva Cui/Ac Hood Attending Physician: Ac Chiu MD History of Present Illness 74 yo male admitted with abdominal pain and imaging concerning for sbo. He reports more severe abdominal pain bringing him into the ER last night to early this morning. Pain currently is improve but approximately 2-4/10. He is alone in his room. Has not passed gas, no bm's. Abdomen is soft. He does have a prior history of Crohn's disease - last seen by Dr. Covington in 2011- reportedly failed imuran and 5-asa's in the past, also [facility], appears he had mostly distal small bowel disease. Prior notes through [facility] in 2011 showed that he had distal small bowel disease - amrit 32 cm of distal small bowel cecum removed via an exploratory lap in 2007, path showed granulomas and concerning for crohn's. Thereafter on treatment above including 5-asa's, imuran of which he failed, humira for 4 months and then appears he didn't want further therapy thereafter as he felt fine. Admitted now for abdominal pain as above. He still does not want further treatment for his crohn's. Allergies Allergy/AdvReac Type Severity Reaction Status Date / Time No Known Allergies Allergy Unknown Verified 12/14/19 05:30 Home Medications Home Medications Medication Instructions Recorded Confirmed Type budesonide-formoterol [Symbicort] 1 inh INHALATION BID 05/11/19 12/14/19 History cholecalciferol (vitamin D3) 1,000 unit PO DAILY 05/11/19 12/14/19 History [Vitamin D3] finasteride [Proscar] 5 mg PO DAILY 05/11/19 12/14/19 History levothyroxine 100 mcg PO DAILY 05/11/19 12/14/19 History losartan [Cozaar] 50 mg PO DAILY 05/11/19 12/14/19 History aspirin [Ecotrin Low Strength] 81 mg PO QAM #34 tab 05/12/19 12/14/19 Rx clopidogrel 75 mg PO QAM #34 tab 05/12/19 12/14/19 Rx amlodipine 2.5 mg PO DAILY 12/14/19 12/14/19 History atorvastatin 80 mg PO HS 12/14/19 12/14/19 History cyanocobalamin (vitamin B-12) 1,000 mcg PO DAILY 12/14/19 12/14/19 History [Vitamin B-12] nitroglycerin [Nitrostat] 0.4 mg SUBLINGUAL UD PRN 12/14/19 12/14/19 History Patient History Medical History Asthma CAD (coronary atherosclerotic disease) Crohn's disease Dyslipidemia Hypertension Hypothyroidism Prostate cancer Surgical History History of bowel resection History of cardiac cath 2019 - LEE to LAD & PDA History of cholecystectomy Family History Other Asthma Cancer Heart disease Social History Preferred Language: Croatian Communication Ability: Effective Beliefs That Will Affect Care: None Current Living Situation: Spouse Other Information That Helps Us Care for You: No Feels Safe at Home: Yes Smoking Status: Former smoker Hx Alcohol Use: Yes Alcohol type: hard liquor Alcohol Intake Frequency: Rarely Hx Substance Use: No Review of Systems Review of Systems: All systems reviewed & are unremarkable except as noted in HPI & below Physical Exam Physical Exam: Well nourished white male in nad Constitutional: WD/WN, vitals as above well nourished; no acute distress Eyes: PERRL, conjunctivae normal, anicteric sclerae Respiratory: normal respiratory effort, lungs clear to auscultation Cardiovascular: RRR, no murmur, no edema Gastrointestinal (Abdomen): normal bowel sounds, soft, nontender, no hepat osplenomegaly Skin: no rashes, warm and dry Results & Data ([facility]) Vital Signs (Past 12 Hours) Vital Signs Temp Pulse Pulse Resp BP BP Pulse Ox 12/14/19 11:59 64 12/14/19 11:04 36.3 C L 63 18 147/80 H 94 12/14/19 10:30 59 L 22 138/79 95 12/14/19 10:12 60 18 138/79 97 12/14/19 08:49 63 22 124/77 98 12/14/19 07:21 72 24 166/92 H 98 12/14/19 06:01 69 27 H 97 12/14/19 06:00 60 23 139/83 96 12/14/19 05:31 58 L 19 96 12/14/19 05:30 62 27 H 147/99 H 97 12/14/19 05:01 55 L 26 H 159/89 H 97 12/14/19 05:00 55 L 23 95 12/14/19 04:31 62 16 97 12/14/19 04:30 59 L 20 159/90 H 96 12/14/19 04:15 60 17 97 12/14/19 04:13 62 14 180/98 H 95 12/14/19 04:03 37.2 C 63 18 180/98 H 95 Labs and imaging reviewed Surgery note reviewed
--- NOTE | 2019-12-14 12:41 | XRay Report ---
XR chest 1V portable CLINICAL HISTORY: 74 years-old Male presenting with fluid overload, atelectasis. TECHNIQUE: Portable upright AP view of the chest was obtained. COMPARISON: 10/21/2009. FINDINGS: Atherosclerosis of the aortic arch. Cardiac silhouette enlarged. Pulmonary vascular prominence. Minim al interstitial prominence. No focal opacity. No large effusion or pneumothorax. Degenerative changes of the thoracic spine. Added retrocardiac density may relate to enlargement of the left atrium or a hiatal hernia. Numerous external leads overlie the right upper quadrant to grating evaluation. IMPRESSION: 1. Cardiomegaly with mild volume overload. No advanced congestive change or tatiana pulmonary edema. ACT 112: Negative or not required by law. Electronically signed by: Garfield Jules M.D. 12/14/2019 12:40 PM
[2019-12-14] MEDS ORDERED: methylPREDNISolone 40 MG in SYRINGE 0 ML IV ONE (13:00)
[2019-12-14] MEDS: LOSARTAN POTASSIUM 50 MG TAB PO SCH (13:23)
[2019-12-14] MEDS: D5W AND 1/2NSS + 20MEQ KCL 20 MEQ/1,000 ML BAG IV SCH (13:23)
[2019-12-14] MEDS: ASPIRIN 81 MG ECTAB PO SCH (13:23)
[2019-12-14] MEDS: metroNIDAZOLE 500 MG/100 ML BAG IV SCH ×2 (14:32→21:24)
[2019-12-14] MEDS: CIPROFLOXACIN / D5W 400 MG/200 ML BAG IV SCH ×2 (14:32→22:36)
[2019-12-14] MEDS ORDERED: ALBUTEROL 0.083% NEBU SOLN 3 ML VIAL NEB PRN (14:37)
[2019-12-14] MEDS ORDERED: BUDESONIDE/FORMOTEROL FUMARATE 80/4.5 60 PUFFS/INHALER INH SCH (21:00)
[2019-12-15] MEDS: D5W AND 1/2NSS + 20MEQ KCL 20 MEQ/1,000 ML BAG IV SCH ×2 (01:53→01:54)
[2019-12-15 05:42] LABS: Hematocrit (blood only) 38.7 % (42-52); Hemoglobin 12.7 g/dL (14.0-18.0); Mean Corpuscular Hemoglobin 31.2 pg (25-34); Mean Corpuscular Hgb Conc 32.8 g/dL (32-36); Mean Corpuscular Volume 95.1 fL (80-100); Mean Platelet Volume 9.3 fL (7.4-10.4); Platelet Count 235 K/uL (130-400); RDW Coefficient of Variation 13.8 % (11.5-14.5); RDW Standard Deviation 47.9 fL (36.4-46.3); Red Blood Count 4.07 M/uL (4.7-6.1); White Blood Count 6.61 K/uL (4.8-10.8)
[2019-12-15 06:07] LABS: BUN Creatinine Ratio 12.5 (10-20); Calcium 8.2 mg/dl (8.5-10.1); Creatinine Clr Calc Pharmacy 59.4 ml/min; Est GFR (African American) 83.5; Est GFR (Non-African American) 72.1
[2019-12-15 06:17] LABS: Thyroid Stimulating Hormone 1.01 uIu/ml (0.300-4.500)
[2019-12-15] MEDS: metroNIDAZOLE 500 MG/100 ML BAG IV SCH (06:17)
[2019-12-15] MEDS ORDERED: LEVOTHYROXINE SODIUM 100 MCG TABLET PO SCH (06:30)
--- NOTE | 2019-12-15 08:20 | Gastroenterology Progress Note ---
Date of Service December 15, 2019 Assessment & Plan Admission and Anticipated Discharge Date Admission Date: December 14, 2019 Supervising Physician Co-Signing Physician Notes Clinically, he reports passing gas and having a bowel movement- suspect this is a sign of his sbo resolving. One more dose of IV methyprednisolone 40 mg IV one time today, can continue IV abx for now. Sips of clears and can slowly advance if tolerated. Can dc home on tapering course of steroids, 40 mg po for a week, 30 mg po for a week, 20 mg for a week, 10 mg for a week and current abx as an outpatient for 10 days pending no surgical intervention. Subjective No acute complaints Sitting up in chair Passing gas reportedly, had a bowel movement No ng tube placed Review of Systems Review of Systems: All systems reviewed & are unremarkable except as noted in HPI & below Physical Exam Physical Exam: No acute distress Constitutional: WD/WN, vitals as above well developed and well nourished Eyes: PERRL, conjunctivae normal, anicteric sclerae Gastrointestinal (Abdomen): normal bowel sounds, soft, nontender, no hepatosplenomegaly Skin: no rashes, warm and dry Neurologic: PERRL, EOMI, accommodation nl, no face palsy, no dysarthria Results & Data ([facility]) Vital Signs (Past 12 Hours) Vital Signs Temp Pulse Pulse Resp BP Pulse Ox 12/15/19 07:46 55 L 12/15/19 07:39 36.7 C 53 L 18 117/67 93 12/15/19 03:25 36.6 C 59 L 18 103/62 97 12/15/19 02:36 68 12/15/19 00:04 36.6 C 64 18 115/64 94 No siginfiicant change in labs
[2019-12-15] MEDS: LOSARTAN POTASSIUM 50 MG TAB PO SCH (08:29)
[2019-12-15] MEDS: ASPIRIN 81 MG ECTAB PO SCH (08:30)
--- NOTE | 2019-12-15 08:50 | XRay Report ---
XR KUB/Abdomen 1 view CLINICAL HISTORY: 74 years-old Male presenting with SBO. TECHNIQUE: Single supine view of the abdomen was obtained. COMPARISON: CT from 12/14/2019 and plain radiographs from 10/29/2007. FINDINGS: Gaseous distention of small bowel as on yesterday's CT. Small bowel has a stacked appearance. Small b owel has an apparent diameter of over 4 cm though this may be affected by magnification. Suture binh ns noted in the right mid abdomen. No gross pneumoperitoneum or pneumatosis. Dense stool in the left colon likely relates to passage of prior oral contrast load, previously within the stomach on prior C T. Allowing for bowel gas and stool, no calcifications to suggest nephrolithiasis. Degenerative changes of the spine. Lung bases clear. IMPRESSION: 1. Persistent small bowel obstruction, which is presumably partial high-grade given apparent passage of oral contrast into the left colon. ACT 112: Negative or not required by law. Electronically signed by: Garfield Jules M.D. 12/15/2019 8:49 AM
[2019-12-15] MEDS ORDERED: FLUTICASONE/VILANTEROL 100/25MCG 14 PUFFS/INHALER INH SCH (09:00)
[2019-12-15] MEDS ORDERED: AMLODIPINE BESYLATE 5 MG TAB PO SCH (09:00)
[2019-12-15] MEDS: CIPROFLOXACIN / D5W 400 MG/200 ML BAG IV SCH (09:01)
--- NOTE | 2019-12-15 10:47 | Hospitalist Progress Note ---
Date of Service December 15, 2019 Assessment & Plan (1) SBO (small bowel obstruction): History of Crohn's disease Admitted with abdominal cramps, pain and CT findings of small bowel obstruction Has been feeling a lot better since this morning Appreciate surgery and GI evaluation KUB did show persistence of SBO with the contrast going to the colon Will start clears and advance diet as tolerated Likely be discharged this afternoon (2) Colonic fistula: Pt is 74 y/o M with PMH CAD s/p LEE to LAD & PDA in 04/2019, HTN, dyslipidemia, hypothyroidism, Crohns disease s/p resection, prostate CA presented to ER with c/o abdominal pain starting last night. Reports started with cramping type pain across mid abdomen which progressed to constant pain across mid abdomen. CT ABD/PELVIS: 1. Postsurgical changes of a cecal and terminal ileal resection with a ileal colonic anastomosis 2. Small bowel obstruction with a right lower quadrant transition zone and a thick-walled distal ileal bowel loop consistent with the clinical history of Crohn's disease. There is no pneumatosis. There is no portal venous gas. There is associated low volume ascites. 3. At the transition zone, there are matted bowel loops which include the sigmoid colon. A fistula at this level must be considered. Has been on intravenous antibiotic No signs of infection We will continue oral antibiotic for about 10 days in total (3) CAD (coronary atherosclerotic disease): S/P LEE to LAD & PDA in 04/2019. Follows with Dr Jerez No CP or SOB. No EKG changes -Hold atorvastatin -Will hold Plavix at this time per general surgery recommendations; also confirmed with cardiology and ok to Plavix for now since stent was for angina and not STEMI and has been more than 6 months -Continue aspirin (4) Hypertension: Stable -Continue losartan, amlodipine -Blood pressure is controlled (5) Dyslipidemia: -Hold atorvastatin for now (6) Crohn's disease: S/P Resection Pt has not followed with GI or had treatment for years as felt was controlled -General surgery recommends GI consult -We will continue prednisone as advised by junior accounting clerk (7) Hypothyroidism: -TSH pending -Continue levothyroxine (8) Asthma: No exacerbation -Continue home inhaler DVT Prophylaxis -SCDs for now in case requires surgical procedure admit med/tele Full Code as per discussion with pt, however reports would not want prolonged on life support if poor prognosis Follows with Dr Cuba Wants to go home this afternoon and if no discharge will sign out AMA Will discharge this afternoon after detailed discussion with the patient Admission and Anticipated Discharge Date Admission Date: December 14, 2019 Subjective The patient is seen and examined in medical telemetry unit He has been feeling a lot better today and moved his bowel x2 this morning Denies any abdominal distention or discomfort Does not have any pain and he wants to go home Review of Systems Review of Systems: All systems reviewed and are unremarkable except as noted below Gastrointestinal: no abdominal pain, no bloating, no nausea and no vomiting Bowel movements Physical Exam Physical Exam: Lying in bed comfortably Constitutional: well developed and well nourished; no acute distress and not ill appearing Eyes: PERRL, conjunctivae normal, anicteric sclerae ENMT: external ear and nose normal, oropharynx normal Neck: trachea midline, no thyromegaly Respiratory: normal respiratory effort; no respiratory distress Auscultation: lungs clear to auscultation bilaterally Cardiovascular: Rate/Rhythm: regular rate and regular rhythm Heart Sounds: no murmur Gastrointestinal (Abdomen): Inspection/Auscultation: abdomen normal to inspection and normal bowel sounds Percussion/Palpation: abdomen soft; abdomen nontender Musculoskeletal: No acute arthritis in any joints Neurologic: moves all extremities; no focal motor deficits Results & Data Results & Data ([facility]) Vital Signs (Past 12 Hours) Vital Signs Temp Pulse Pulse Resp BP Pulse Ox 12/15/19 07:46 55 L 12/15/19 07:39 36.7 C 53 L 18 117/67 93 12/15/19 03:25 36.6 C 59 L 18 103/62 97 12/15/19 02:36 68 12/15/19 00:04 36.6 C 64 18 115/64 94 Laboratory Results Short CBC 12/15/19 Range/Units 05:17 WBC 6.61 (4.8-10.8) K/uL Hgb 12.7 L (14.0-18.0) g/dL Hct 38.7 L (42-52) % Plt Count 235 (130-400) K/uL BMP 12/15/19 05:17 Sodium 141 Potassium 4.0 Chloride 113 H Carbon Dioxide 26 BUN 13 Creatinine 1.02 Glucose 108 H Calcium 8.2 L Medications Administered Current Inpatient Medications Albuterol (Ventolin 0.083% 2.5mg/3ml) 2.5 mg NEB Q6R PRN PRN Reason: Shortness Of Breath Or Wheezing Stop: 01/13/20 14:36 Amlodipine Besylate (Norvasc) 2.5 mg PO DAILY [facility] Stop: 01/14/20 08:59 Last Admin: 12/15/19 08:29 Dose: 2.5 mg Documented by: Aspirin (Ecotrin Ectab) 81 mg PO QAM [facility] Stop: 01/13/20 11:45 Last Admin: 12/15/19 08:30 Dose: 81 mg Documented by: Fluticasone/Vilanterol (Breo Ellipta 100/25 Mcg Inh) 1 puffs INH DAILY [facility] Stop: 01/14/20 08:59 Last Admin: 12/15/19 09:02 Dose: Not Given Documented by: Potassium Chloride/Dextrose/Sod Cl (D5w And 1/2nss + 20meq Kcl) 20 meq in 1,000 mls @ 80 mls/hr IV .[id number] [facility] Stop: 12/15/19 13:29 Last Admin: 12/15/19 01:54 Dose: 80 mls/hr Documented by: Acetaminophen (Ofirmev) 1,000 mg in 100 mls @ 400 mls/hr IV Q8H PRN PRN Reason: Pain Stop: 12/17/19 11:45 Ciprofloxacin (Cipro) 400 mg in 200 mls @ 100 mls/hr IV Q12 ANTIONETTE; Protocol Stop: 12/24/19 12:59 Last Admin: 12/15/19 09:01 Dose: 100 mls/hr Documented by: Metronidazole (Flagyl) 500 mg in 100 mls @ 100 mls/hr IV Q8 [facility] Stop: 12/24/19 12:59 Last Infusion: 12/15/19 07:33 Dose: Infused Documented by: Levothyroxine Sodium (Synthroid) 100 mcg PO DAILYBB [facility] Stop: 01/14/20 06:29 Last Admin: 12/15/19 06:18 Dose: 100 mcg Documented by: Losartan Potassium (Cozaar) 50 mg PO DAILY [facility] Stop: 01/13/20 11:45 Last Admin: 12/15/19 08:29 Dose: 50 mg Documented by: Morphine Sulfate (Morphine Sulfate) 2 mg IV Q4H PRN PRN Reason: Severe Pain Stop: 12/28/19 11:45 Nitroglycerin (Nitrostat) 0.4 mg SL UD PRN PRN Reason: Chest Pain Stop: 01/13/20 11:45 Ondansetron HCl (Zofran) 4 mg IV Q6H PRN PRN Reason: Nausea Stop: 01/13/20 11:45 Last Admin: 12/14/19 13:30 Dose: 4 mg Documented by: (1) Crohn's disease Digestive disease complication type: with intestinal obstruction Gastrointestinal tract location: small and large intestine Qualified Code(s): K50.812 - Crohn's disease of both small and large intestine with intestinal obstruction
--- NOTE | 2019-12-15 11:45 | Surgery Progress Note ---
Date of Service December 15, 2019 Assessment & Plan (1) SBO (small bowel obstruction): SBO-resolving with hx of Crohn's disease abdominal pain resolved no nausea or vomiting +return of bowel function Plan: No surgical indication at this time would recommend liquids for next few days and advance as tolerated GI recommending taper of oral prednisone and abx on discharge may resume plavix and home meds Dr. Lizarraga has seen patient, agrees with above. Subjective feeling much better today no abdominal pain, nausea or vomiting passed gas and multiple bowel movements tolerated complete try of clear liquids this morning going home this afternoon Physical Exam Constitutional: WD/WN, vitals as above no acute distress Respiratory: normal respiratory effort; no respiratory distress Gastrointestinal (Abdomen): Inspection/Auscultation: abdomen normal to inspection; abdomen not distended Percussion/Palpation: abdomen soft; abdomen nontender, no guarding and abdomen not rigid Skin: no rashes, warm and dry Psychiatric: A+Ox3, euthymic affect Results & Data Vital Signs (Past 12 Hours) Vital Signs Temp Pulse Pulse Resp BP Pulse Ox 12/15/19 11:41 36.3 C L 60 18 147/82 H 96 12/15/19 07:46 55 L 12/15/19 07:39 36.7 C 53 L 18 117/67 93 12/15/19 03:25 36.6 C 59 L 18 103/62 97 12/15/19 02:36 68 12/15/19 00:04 36.6 C 64 18 115/64 94 Laboratory Results 12/15/19 12/15/19 12/14/19 Range/Units 05:17 05:17 12:53 WBC 6.61 (4.8-10.8) K/uL RBC 4.07 L (4.7-6.1) M/uL Hgb 12.7 L (14.0-18.0) g/dL Hct 38.7 L (42-52) % MCV 95.1 (80-100) fL MCH 31.2 (25-34) pg MCHC 32.8 (32-36) g/dL RDW Std Deviation 47.9 H (36.4-46.3) fL RDW Coeff of Yong 13.8 (11.5-14.5) % Plt Count 235 (130-400) K/uL MPV 9.3 (7.4-10.4) fL ESR (0-14) mm/hr Sodium 141 (136-145) mmol/L Potassium 4.0 (3.5-5.1) mmol/L Chloride 113 H (98-107) mmol/L Carbon Dioxide 26 (21-32) mmol/L Anion Gap 3.0 (3-11) BUN 13 (7-18) mg/dl Creatinine 1.02 (0.6-1.4) mg/dl Est Cr Clr Drug Dosing 59.4 ml/min Est GFR ( Amer) 83.5 Est GFR (Non-Af Amer) 72.1 BUN/Creatinine Ratio 12.5 (10-20) Glucose 108 H (70-99) mg/dl Calcium 8.2 L (8.5-10.1) mg/dl C-Reactive Protein 0.44 H (0-0.29) mg/dl TSH 1.010 (0.300-4.500) uIu/ml 12/14/19 Range/Units 12:53 WBC (4.8-10.8) K/uL RBC (4.7-6.1) M/uL Hgb (14.0-18.0) g/dL Hct (42-52) % MCV (80-100) fL MCH (25-34) pg MCHC (32-36) g/dL RDW Std Deviation (36.4-46.3) fL RDW Coeff of Yong (11.5-14.5) % Plt Count (130-400) K/uL MPV (7.4-10.4) fL ESR 23 H (0-14) mm/hr Sodium (136-145) mmol/L Potassium (3.5-5.1) mmol/L Chloride (98-107) mmol/L Carbon Dioxide (21-32) mmol/L Anion Gap (3-11) BUN (7-18) mg/dl Creatinine (0.6-1.4) mg/dl Est Cr Clr Drug Dosing ml/min Est GFR ( Amer) Est GFR (Non-Af Amer) BUN/Creatinine Ratio (10-20) Glucose (70-99) mg/dl Calcium (8.5-10.1) mg/dl C-Reactive Protein (0-0.29) mg/dl TSH (0.300-4.500) uIu/ml Diagnostic Findings XR KUB/Abdomen 1 view CLINICAL HISTORY: 74 years-old Male presenting with SBO. TECHNIQUE: Single supine view of the abdomen was obtained. COMPARISON: CT from 12/14/2019 and plain radiographs from 10/29/2007. FINDINGS: Gaseous distention of small bowel as on yesterday's CT. Small bowel has a stacked appearance. Small bowel has an apparent diameter of over 4 cm though this may be affected by magnification. Suture margins noted in the right mid abdomen. No gross pneumoperitoneum or pneumatosis. Dense stool in the left colon likely relates to passage of prior oral contrast load, previously within the stomach on prior CT. Allowing for bowel gas and stool, no calcifications to suggest nephrolithiasis. Degenerative changes of the spine. Lung bases clear. IMPRESSION: 1. Persistent small bowel obstruction, which is presumably partial high-grade given apparent passage of oral contrast into the left colon.
[2019-12-15] MEDS ORDERED: metroNIDAZOLE 500 MG TAB PO ONE ×2 (13:00→14:00)
--- NOTE | 2019-12-15 17:28 | Discharge Summary ---
Date of Service December 15, 2019 Admission HPI Per Admitting Provider Pt is 74 y/o M with PMH CAD s/p LEE to LAD & PDA in 04/2019, HTN, dyslipidemia, hypothyroidism, Crohns disease s/p resection, prostate CA presented to ER with c/o abdominal pain starting last night. Reports started with cramping type pain across mid abdomen which progressed to constant pain across mid abdomen. Pt thought this pain felt similar to prior Crohn's flare. C/O nausea and vomited once early this morning. Reports chronic loose stools and has 5-10 episodes a day. Denies hematochezia, melena or mucous in stools. Last night tried Pepto- bismol without relief. He reports diet has been different as he has been eating left over pizza and sandwiches the past week. No other ill contacts. H/O cholecystectomy, bowel resection in past. Reports chronic feels cold, denies fever. States last week has been moving and has been carrying heavy boxes and notes some bruising to abdomen. He states a couple of days ago felt tired and lightheaded in the morning and improved in the afternoon after he ate and drank some fluids. Denies syncope. Denies diaphoresis, hematemesis, KITCHEN, vision changes, neck pain, CP, SOB, orthopnea, palpitations, cough, sore throat, choking, otalgia, rhinorrhea, paresthesias, extremity weakness, extremity edema, rashes, urinary symptoms. Denies recent travel. Admission Exam Per Admitting Provider Physical Exam: General: no distress, WDWN Head: normocephalic, atraumatic Eyes: PERRL, EOM's intact, conjunctiva non-injected, anicteric ENT: normal inspection external ears, nose, mucous membranes mildly dry Neck: supple, trachea midline Lungs: no respiratory distress, faint rales at bases bilaterally, no wheezing/rhonchi CV: RRR, no murmur, no pretibial edema Abd: +healed surgical scar mid abdomen, +few ecchymosis abdomen, mildly distended, hypoactive BS, soft, non-tender to palpation at this time Ext: no cyanosis, no calf tenderness Neuro: A&O x 3, no focal deficits noted, normal affect Skin: warm, dry Principal Diagnosis Small bowel obstruction, Crohn's disease with 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 fistula, CAD, hypertension Discharge Exam Constitutional well developed and well nourished; no acute distress and not ill appearing Eyes PERRL, conjunctivae normal, anicteric sclerae ENMT external ear and nose normal, oropharynx normal Neck trachea midline, no thyromegaly Respiratory normal respiratory effort; no respiratory distress Auscultation: lungs clear to auscultation bilaterally Cardiovascular Rate/Rhythm: regular rate and regular rhythm Heart Sounds: no murmur Gastrointestinal (Abdomen) Inspection/Auscultation: abdomen normal to inspection and normal bowel sounds Percussion/Palpation: abdomen soft; abdomen nontender Neurologic moves all extremities; no focal motor deficits Discharge Data Allergies Allergy/AdvReac Type Severity Reaction Status Date / Time No Known Allergies Allergy Unknown Verified 12/14/19 05:30 Consultations 12/14/19 08:20 ED Decision to Admit Stat 12/14/19 11:46 Consult Case Management - Discharge Planning Routine Consult Gastroenterology Routine Consult General Surgery Routine Ordered Studies 12/14/19 04:41 CT Abd and Pelvis [CT abd pelvis oral and IV con] Stat Hospital Course (1) SBO (small bowel obstruction): History of Crohn's disease Admitted with abdominal cramps, pain and CT findings of small bowel obstruction Has been feeling a lot better since this morning Appreciate surgery and GI evaluation KUB did show persistence of SBO with the contrast going to the colon Will start clears and advance diet as tolerated Likely be discharged this afternoon (2) Colonic fistula: Pt is 74 y/o M with PMH CAD s/p LEE to LAD & PDA in 04/2019, HTN, dyslipidemia, hypothyroidism, Crohns disease s/p resection, prostate CA presented to ER with c/o abdominal pain starting last night. Reports started with cramping type pain across mid abdomen which progressed to constant pain across mid abdomen. CT ABD/PELVIS: 1. Postsurgical changes of a cecal and terminal ileal resection with a ileal colonic anastomosis 2. Small bowel obstruction with a right lower quadrant transition zone and a thick-walled distal ileal bowel loop consistent with the clinical history of Crohn's disease. There is no pneumatosis. There is no portal venous gas. There is associated low volume ascites. 3. At the transition zone, there are matted bowel loops which include the sigmoid colon. A fistula at this level must be considered. Has been on intravenous antibiotic No signs of infection We will continue oral antibiotic for about 10 days in total (3) CAD (coronary atherosclerotic disease): S/P LEE to LAD & PDA in 04/2019. Follows with Dr Jerez No CP or SOB. No EKG changes -Hold atorvastatin -Will hold Plavix at this time per general surgery recommendations; also confirmed with cardiology and ok to Plavix for now since stent was for angina and not STEMI and has been more than 6 months -Continue aspirin (4) Hypertension: Stable -Continue losartan, amlodipine -Blood pressure is controlled (5) Dyslipidemia: -Hold atorvastatin for now (6) Crohn's disease: S/P Resection Pt has not followed with GI or had treatment for years as felt was controlled -General surgery recommends GI consult -We will continue prednisone as advised by building inspector (7) Hypothyroidism: -TSH pending -Continue levothyroxine (8) Asthma: No exacerbation -Continue home inhaler DVT Prophylaxis -SCDs for now in case requires surgical procedure admit med/tele Full Code as per discussion with pt, however reports would not want prolonged on life support if poor prognosis Follows with Dr Cuba Wants to go home this afternoon and if no discharge will sign out AMA Will discharge this afternoon after detailed discussion with the patient Total Time Total Time Spent Total Time Spent (In Minutes): 35 minutes Total Time Includes: Examination of the Patient, Discharge Planning, Medication Reconciliation and Communication With Other Providers Discharge Plan Discharge Items Patient Disposition: Home - Self-Care Reason For Visit: SBO Discharge Diagnosis: Small bowel obstruction, Crohn's disease with 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 fistula, CAD, hypertension Condition on Discharge: Fair Activity: Resume your previous activity Non-emergency contact: Primary Care Provider Call non-emergency contact if: you have any medication questions and your symptoms worsen Follow-up/Referrals: Tulio Cuba MD [Primary Care Provider] - 12/20/19 10:00 am Diet: Clear liquid Diet Comment: Clears for 2 to 3 days and then advance diet as tolerated Addtl Attending Provider Instructions: Continue to have clears liquids orally for the next day or 2. Finish the course of antibiotic Pending Studies at Discharge: No Stand-Alone Forms: [employer], Smoking Cessation Medications and DC Order Prescriptions: New prednisone 20 mg tablet 20 mg PO UD Qty: 36 RF: 0 ciprofloxacin HCl [Cipro] 500 mg tablet 500 mg PO BID Qty: 16 RF: 0 metronidazole [Flagyl] 500 mg tablet 500 mg PO BID 8 Days Qty: 16 RF: 0 Lactinex 1 million cell tablet,chewable 1 tab PO BID Qty: 30 RF: 0 Continued losartan [Cozaar] 25 mg Tablet 50 mg PO DAILY RF: 0 finasteride [Proscar] 5 mg Tablet 5 mg PO DAILY RF: 0 cholecalciferol (vitamin D3) [Vitamin D3] 1,000 unit Capsule 1,000 unit PO DAILY RF: 0 budesonide-formoterol [Symbicort] 80-4.5 mcg/actuation Hfa Aerosol Inhaler 1 inh inhalation BID RF: 0 levothyroxine 100 mcg Capsule 100 mcg PO DAILY RF: 0 clopidogrel 75 mg Tablet 75 mg PO QAM Qty: 34 RF: 0 aspirin [Ecotrin Low Strength] 81 mg Tablet,Delayed Release (Dr/Ec) 81 mg PO QAM Qty: 34 RF: 0 nitroglycerin [Nitrostat] 0.4 mg tablet, sublingual 0.4 mg sublingual UD PRN (Reason: Chest Pain) RF: 0 amlodipine 2.5 mg Tablet 2.5 mg PO DAILY RF: 0 cyanocobalamin (vitamin B-12) [Vitamin B-12] 500 mcg Tablet 1,000 mcg PO DAILY RF: 0 atorvastatin 40 mg tablet 80 mg PO HS RF: 0 Discharge Orders: Discharge Order (Routine); Ordered 12/15/19 Ordered By: Liz Jena Admission Data Admit Date/Time: 12/14/19 10:04 Attending Provider: Liz Jean Admit Provider: Ac Chiu Primary Care Provider: Tulio Cuba Other Providers: Ac Chiu ; Jacoby Lizarraga ; Deedee Melara Other Interventions: Discharge Summary Assessment (RN) Last Done: 12/15/19 13:20 DC Date/Time DO NOT enter until pt leaves facility: 12/15/19 13:23
[2019-12-15] MEDS ORDERED: CIPROFLOXACIN 500 MG TAB PO ONE (21:00)
== END 2019-12-15 13:23 | disposition home or self-care (01) | DRG 386 ==
LOC: ED 04:08 → SUATTDRO 10:04 → 2N 10:04